=== PATIENT | female | born 1970 | race Caucasian/White ===

== ENCOUNTER → 2016-12-13 | Outpatient (CLI) | payer BC ==
--- NOTE | 2016-12-13 09:28 | REP ---
RIGHT UPPER QUADRANT/LIMITED ABDOMINAL ULTRASOUND: 12/13/2016 INDICATION: Diarrhea. Right upper quadrant pain. FINDINGS: A 1.8 mm echogenic focus is present within the dependent portion of the gallbladder and is non-shadowing and non-mobile compatible with gallbladder polyp. There was a positive sonographic Mckeon's sign. Gallbladder wall 1.6 mm in thickness within normal limits. Three hyperechoic foci are seen within the right lobe of liver likely hemangiomas, measuring 9.4 mm maximal dimension, 12.3 mm maximal dimension and 16 mm maximal dimension. The pancreas is mostly obscured by bowel gas. The visualized portions of the head and mid body are within normal range. Right kidney measures 11.0 x 4.4 x 3.9 cm. Hyperechoic intramedullary portion of the right kidney including renal sinus fat is identified as can be seen with medullary sponge kidney. There are findings findings suggesting renal cortical thinning as well. There is no hydronephrosis. IMPRESSION: 1. 1.8 mm hyperechoic non-mobile focus within the dependent portion of the gallbladder adhering to the wall most compatible with a small polyp. There is a positive sonographic Mckeon's sign. There is no gallbladder wall thickening or biliary dilatation (common bile duct 2.7 mm depth). 2. Three hyperechoic foci within the right lobe of liver, largest 16 mm diameter, most compatible with hemangiomas. 3. Pancreas moderately obscured by bowel gas. 4. Right kidney without hydronephrosis. Findings are suggestive of medullary sponge kidney.clinical follow up recommended. Unreviewed MTDD
== END ==
LOC: M RAD 08:06
PROVIDERS: ATTEND Nurse Practitioner Family
DX: R10.11 Right upper quadrant pain (principal); R19.7 Diarrhea, unspecified; K76.89 Other specified diseases of liver

== ENCOUNTER → 2017-01-04 | Outpatient (CLI) | payer BC ==
[~2017-01-04] MED LIST: GASTROGRAFIN SOLUTION 30ML (Q9963) As Ordered ONE; IMOD2TAB16 PO; ISOVUE-370 76% 100ML VIAL (Q9967) As Ordered ONE; LEXA1TAB PO; RANI15TA PO
--- NOTE | 2017-01-04 16:00 | REP ---
CT abdomen pelvis without and with IV contrast and with bowel contrast: Comparison is the abdominal ultrasound 2016. The visualized lung li are unremarkable. There is a 5.5 cm fixed hiatal hernia. The hepatic parenchyma is homogeneous on both phases of the study. The gallbladder is unremarkable. However, a gallbladder polyp was identified on the comparison ultrasound study. The pancreas and spleen are unremarkable. The adrenals, kidneys and abdominal aorta are unremarkable. The bowel and mesentery are unremarkable. Pelvis: The appendix is unremarkable. The uterus and adnexa are unremarkable. The bladder is incompletely distended and cannot be assessed. There is no adenopathy or ascites. The pelvic bowel loops are unremarkable. Impression: Essentially negative CT study of the abdomen and pelvis except for a fixed hiatal hernia. Signed by Silvio Alvarez MD 01/04/2017 03:51 P
== END ==
LOC: M RAD 13:02
PROVIDERS: ATTEND Surgery
DX: R10.11 Right upper quadrant pain (principal); R19.7 Diarrhea, unspecified; K44.9 Diaphragmatic hernia without obstruction or gangrene; K21.9 Gastro-esophageal reflux disease without esophagitis
CPT/HCPCS: 74178; Q9963; Q9967

== ENCOUNTER → 2017-01-10 | Outpatient (CLI) | payer BC ==
[~2017-01-10] VITALS: Ht 162.6 cm; Wt 98.9 kg
[~2017-01-10] MED LIST changes: -GASTROGRAFIN SOLUTION 30ML (Q9963) As Ordered ONE; -ISOVUE-370 76% 100ML VIAL (Q9967) As Ordered ONE; +LIDOCAINE 2% INJ 100 MG/5 ML SDV (FOR ANES.) As Ordered ONE; +NS 1,000 ML IV SCH; +PROPOFOL 200 MG/20 ML VIAL As Ordered ONE
--- NOTE | 2017-01-10 11:33 | ROOR ---
Patient Name: Joie Harley Procedure Date: 01/10/2017 11:13 AM Date of : 1970 Age: 46 Room: [facility] Gender: Female Note Status: Finalized Procedure: Upper GI endoscopy Indications: Generalized abdominal pain, Diarrhea Providers: Wenceslao Tyler Jr, MD Referring MD: Aydee Becker NP Requesting Provider: Medicines: Propofol per Anesthesia Complications: No immediate complications. Procedure: Pre-Anesthesia Assessment: - Prior to the procedure, a History and Physical was performed, and patient medications and allergies were reviewed. The patient is competent. The risks and benefits of the procedure and the sedation options and risks were discussed with the patient. All questions were answered and informed consent was obtained. Patient identification and proposed procedure were verified by the physician and the nurse in the pre-procedure area and in the procedure room. Mental Status Examination: alert and oriented. Airway Examination: normal oropharyngeal airway and neck mobility. Respiratory Examination: clear to auscultation. CV Examination: normal. ASA Grade Assessment: II - A patient with mild systemic disease. After reviewing the risks and benefits, the patient was deemed in satisfactory condition to undergo the procedure. The anesthesia plan was to use moderate sedation / analgesia (conscious sedation). Immediately prior to administration of medications, the patient was re-assessed for adequacy to receive sedatives. The heart rate, respiratory rate, oxygen saturations, blood pressure, adequacy of pulmonary ventilation, and response to care were monitored throughout the procedure. The physical status of the patient was re-assessed after the procedure. The Endoscope was introduced through the mouth, and advanced to the third part of duodenum. The upper GI endoscopy was accomplished without difficulty. The patient tolerated the procedure well. Findings: The upper third of the esophagus, middle third of the esophagus and lower third of the esophagus were normal. A medium-sized hiatal hernia was present. Patchy moderate inflammation characterized by congestion (edema), erythema, friability and granularity was found in the cardia, in the gastric fundus and in the gastric body. Biopsies were taken with a cold forceps for histology. The duodenal bulb and first portion of the duodenum were normal. The second portion of the duodenum was normal. Biopsies for histology were taken with a cold forceps for evaluation of celiac disease. Impression: - Normal upper third of esophagus, middle third of esophagus and lower third of esophagus. - Medium-sized hiatal hernia. - Gastritis. Biopsied. - Normal duodenal bulb and first portion of the duodenum. - Normal second portion of the duodenum. Biopsied. Recommendation: - Discharge patient to home (ambulatory). - Return to my office in 2 weeks. Wenceslao Tyler MD Wenceslao Tyler Jr, MD 01/10/2017 11:32:36 AM This report has been signed electronically. Number of Addenda: 0 Note Initiated On: 01/10/2017 11:13 AM Estimated Blood Loss: Estimated blood loss: none.
--- NOTE | 2017-01-10 11:49 | ROOR ---
Patient Name: Joie Harley Procedure Date: 01/10/2017 11:13 AM Date of : 1970 Age: 46 Room: [facility] Gender: Female Note Status: Finalized Procedure: Colonoscopy Indications: Generalized abdominal pain, Chronic diarrhea Providers: Wenceslao Tyler Jr, MD Referring MD: Aydee Becker NP Requesting Provider: Medicines: Propofol per Anesthesia Complications: No immediate complications. Procedure: Pre-Anesthesia Assessment: - Prior to the procedure, a History and Physical was performed, and patient medications and allergies were reviewed. The patient is competent. The risks and benefits of the procedure and the sedation options and risks were discussed with the patient. All questions were answered and informed consent was obtained. Patient identification and proposed procedure were verified by the physician and the nurse in the pre-procedure area and in the procedure room. Mental Status Examination: alert and oriented. Airway Examination: normal oropharyngeal airway and neck mobility. Respiratory Examination: clear to auscultation. CV Examination: normal. ASA Grade Assessment: II - A patient with mild systemic disease. After reviewing the risks and benefits, the patient was deemed in satisfactory condition to undergo the procedure. The anesthesia plan was to use moderate sedation / analgesia (conscious sedation). Immediately prior to administration of medications, the patient was re-assessed for adequacy to receive sedatives. The heart rate, respiratory rate, oxygen saturations, blood pressure, adequacy of pulmonary ventilation, and response to care were monitored throughout the procedure. The physical status of the patient was re-assessed after the procedure. The Colonoscope was introduced through the anus and advanced to the terminal ileum. The colonoscopy was performed without difficulty. The patient tolerated the procedure well. The quality of the bowel preparation was adequate and excellent. Findings: The perianal and digital rectal examinations were normal. Pertinent negatives include normal sphincter tone, no palpable rectal lesions and no anal lesion or abnormality was detected. The ileum appeared normal. Biopsies were taken with a cold forceps for histology. The entire examined colon, recto-sigmoid colon, sigmoid colon, descending colon, transverse colon, ascending colon, cecum, appendiceal orifice and ileocecal valve appeared normal. Biopsies for histology were taken with a cold forceps from the cecum, right colon, transverse colon, descending colon and sigmoid colon for evaluation of microscopic colitis. An area of mildly congested mucosa was found in the rectum. This was biopsied with a cold forceps for histology. Impression: - The terminal ileum is normal. Biopsied. - The entire examined colon, recto-sigmoid colon, sigmoid colon, descending colon, transverse colon, ascending colon, cecum, appendiceal orifice and ileocecal valve are normal. Biopsied. - Congested mucosa in the rectum. Biopsied. Recommendation: - Discharge patient to home (ambulatory). - Return to my office in 2 weeks. Wenceslao Tyler MD Wenceslao Tyler Jr, MD 01/10/2017 11:49:50 AM This report has been signed electronically. Number of Addenda: 0 Note Initiated On: 01/10/2017 11:13 AM Estimated Blood Loss: Estimated blood loss: none.
[2017-01-10 12:15] VITALS: BP 121/65
== END | disposition home or self-care (01) ==
LOC: M OPP 10:15
PROVIDERS: ATTEND Surgery
DX: R19.7 Diarrhea, unspecified (principal); R10.11 Right upper quadrant pain; R93.2 Abnormal findings on diagnostic imaging of liver and biliary tract; K62.89 Other specified diseases of anus and rectum; K44.9 Diaphragmatic hernia without obstruction or gangrene; K29.70 Gastritis, unspecified, without bleeding; F32.9 Major depressive disorder, single episode, unspecified; F41.9 Anxiety disorder, unspecified; Z80.3 Family history of malignant neoplasm of breast; R12 Heartburn; M19.90 Unspecified osteoarthritis, unspecified site; Z87.891 Personal history of nicotine dependence; Z79.899 Other long term (current) drug therapy

== ENCOUNTER → 2017-06-06 | Outpatient (REF) | payer BC ==
[~2017-06-06] MED LIST changes: -LIDOCAINE 2% INJ 100 MG/5 ML SDV (FOR ANES.) As Ordered ONE; -NS 1,000 ML IV SCH; -PROPOFOL 200 MG/20 ML VIAL As Ordered ONE
== END ==
LOC: M LAB REF 14:37
PROVIDERS: ATTEND Internal Medicine Gastroenterology
DX: K58.0 Irritable bowel syndrome with diarrhea (principal)

== ENCOUNTER → 2017-06-12 | Outpatient (REF) | payer BC | LOC: M LAB REF 14:43 | PROVIDERS: ATTEND Surgery | DX: L72.0 Epidermal cyst (principal) ==

== ENCOUNTER → 2017-06-25 | Outpatient (REF) | payer BC | LOC: M LAB REF 13:21 | PROVIDERS: ATTEND Surgery | DX: L72.0 Epidermal cyst (principal) ==

== ENCOUNTER → 2017-08-13 | Outpatient (REF) | payer BC | LOC: M SFHCWAGY 08:38 | PROVIDERS: ATTEND Nurse Practitioner Women's Health | DX: Z12.4 Encounter for screening for malignant neoplasm of cervix (principal) ==

== ENCOUNTER → 2017-08-13 | Outpatient (CLI) | payer BC ==
--- NOTE | 2017-08-23 13:00 | REPMRS ---
Patient History The patient states she had a clinical breast exam in 07/2017. Patient is postmenopausal. Family history of breast cancer in mother at age 80. Took hormonal contraceptives for 2 years. Digital Woman Screen Mammo: August 13, 2017 - Exam #: [id number] Bilateral CC and MLO view(s) were taken. Technologist: Rosette Jurado, Technologist Prior study comparison: March 07, 2016, digital bilateral screening mammo, performed at [facility]. FINDINGS: There are scattered fibroglandular densities. There has been no change in the appearance of the mammogram from the prior studies. There is a mild amount of residual fibroglandular tissue which is fairly symmetric. There is no interval development of dominant mass, architectural distortion, or clustered microcalcification suggestive of malignancy. ASSESSMENT: BI-RADS/ACR category 1 mammogram. Negative. Recommendation Routine screening mammogram in 1 year (for women over age 40). This mammogram was interpreted with the aid of an FDA-approved computer-aided dectection system. Electronically Signed By: Silvio Guerrero MD 08/23/17 [id number]
== END ==
LOC: M WHC 08:17
PROVIDERS: ATTEND Nurse Practitioner Women's Health
DX: Z12.31 Encounter for screening mammogram for malignant neoplasm of breast (principal)

== ENCOUNTER → 2018-05-30 | Outpatient (CLI) | payer OTHER, BC | LOC: M CLY 16:10 | DX: M25.561 Pain in right knee (principal) | CPT/HCPCS: 73564 ==

== ENCOUNTER → 2018-06-28 | Outpatient (CLI) | payer OTHER ==
[2018-06-28 18:47] LABS: C REACTIVE PROTEIN QUANTITATIV < 0.30 MG/DL (0.00-0.30)
[2018-06-28 19:06] LABS: ERYTHROCYTE SEDIMENTATION RATE 16 mm/hr (0-20)
[2018-07-02 00:07] LABS: Lyme Disease IgG/IgM Antibodie <0.91 ISR (0.00-0.90); Lyme Disease IgM Ab Quantitati <0.80 index (0.00-0.79)
== END ==
LOC: M WUC 09:19
DX: M25.561 Pain in right knee (principal)
CPT/HCPCS: 86140

== ENCOUNTER → 2018-10-02 | Outpatient (CLI) | payer OTHER ==
[2018-10-02 09:18] LABS: BASO % 0.3 % (0.0-1.0); EOS # 0.2 10^3/uL (0.0-0.50); HEMATOCRIT 40.5 % (36.0-47.0); HEMOGLOBIN 13.3 g/dl (12.0-15.5); IMMATURE GRANULOCYTE % 0.2 % (0-3.0); LYMPH % 32.5 % (24.0-44.0); MEAN CORPUSCULAR HEMOGLOBIN 30.4 pg (27.0-33.0); MEAN CORPUSCULAR HGB CONC 32.8 g/dl (32.0-36.5); MEAN CORPUSCULAR VOLUME 92.5 fl (80.0-96.0); MONO # 0.5 10^3/uL (0.0-0.8); MONO % 8.7 % (0.0-5.0); NEUTROPHILS # 3.4 10^3/uL (1.8-7.7); NEUTROPHILS % 55.3 % (36.0-66.0); PLATELET COUNT, AUTOMATED 166 10^3/uL (150-450); RED BLOOD COUNT 4.38 10^6/uL (4.00-5.40); WHITE BLOOD COUNT 6.1 10^3/uL (4.0-10.0)
[2018-10-02 09:51] LABS: ALBUMIN 3.7 GM/DL (3.2-5.2); ALBUMIN/GLOBULIN RATIO 1.28 (1.00-1.93); ALKALINE PHOSPHATASE 70 U/L (45-117); ALT/SGPT 15 U/L (12-78); ANION GAP 7 MEQ/L (8-16); AST/SGOT 12 U/L (7-37); BILIRUBIN,TOTAL 0.4 MG/DL (0.2-1.0); BLOOD UREA NITROGEN 21 MG/DL (7-18); CALCIUM LEVEL 9.2 MG/DL (8.5-10.1); CARBON DIOXIDE LEVEL 30 MEQ/L (21-32); CHLORIDE LEVEL 107 MEQ/L (98-107); CHOLESTEROL LEVEL 188 MG/DL (<200); CREATININE FOR GFR 0.77 MG/DL (0.55-1.30); FREE T4 1.22 NG/DL (0.76-1.46); GLOMERULAR FILTRATION RATE > 60.0 (>58); GLUCOSE, FASTING 80 MG/DL (70-100); HDL CHOLESTEROL 87 MG/DL (>40); LDL CHOLESTEROL 88 MG/DL (<100); NON-HDL-C 101 MG/DL; POTASSIUM SERUM 4.2 MEQ/L (3.5-5.1); SODIUM LEVEL 144 MEQ/L (136-145); TOTAL PROTEIN 6.6 GM/DL (6.4-8.2); TRIGLYCERIDES LEVEL 65 MG/DL (<150)
== END ==
LOC: M WUC 08:28
DX: F41.8 Other specified anxiety disorders (principal); L30.9 Dermatitis, unspecified; Z13.220 Encounter for screening for lipoid disorders
CPT/HCPCS: 84443

== ENCOUNTER → 2018-10-22 | Outpatient (CLI) | payer OTHER | LOC: M CLY 15:42 | DX: M17.12 Unilateral primary osteoarthritis, left knee (principal); M25.562 Pain in left knee | CPT/HCPCS: 73564 ==

== ENCOUNTER → 2020-04-29 | Outpatient (CLI) | payer OTHER ==
[2020-04-29 17:34] LABS: BASO % 0.4 % (0.0-1.0); EOS # 0.1 10^3/uL (0.0-0.5); EOS % 2.9 % (0.0-3.0); HEMATOCRIT 42.6 % (36.0-47.0); HEMOGLOBIN 13.6 g/dl (12.0-15.5); LYMPH # 1.8 10^3/uL (1.5-5.0); LYMPH % 36.5 % (24.0-44.0); MEAN CORPUSCULAR HEMOGLOBIN 29.8 pg (27.0-33.0); MEAN CORPUSCULAR HGB CONC 31.9 g/dl (32.0-36.5); MEAN CORPUSCULAR VOLUME 93.2 fl (80.0-96.0); MONO # 0.5 10^3/uL (0.0-0.8); NEUTROPHILS # 2.4 10^3/uL (1.5-8.5); PLATELET COUNT, AUTOMATED 191 10^3/uL (150-450); RED BLOOD COUNT 4.57 10^6/uL (4.00-5.40); WHITE BLOOD COUNT 4.8 10^3/uL (4.0-10.0)
[2020-04-29 17:51] LABS: ALBUMIN 3.7 GM/DL (3.2-5.2); ALT/SGPT 21 U/L (12-78); BILIRUBIN,TOTAL 0.5 MG/DL (0.2-1.0); BLOOD UREA NITROGEN 17 MG/DL (7-18); CALCIUM LEVEL 8.6 MG/DL (8.5-10.1); CARBON DIOXIDE LEVEL 31 MEQ/L (21-32); CHLORIDE LEVEL 109 MEQ/L (98-107); CHOLESTEROL LEVEL 192 MG/DL (<200); CHOLESTEROL RISK RATIO 2.526 (<5); CREATININE FOR GFR 0.77 MG/DL (0.55-1.30); FREE T4 1.08 NG/DL (0.76-1.46); GLOMERULAR FILTRATION RATE > 60.0 (>51); GLUCOSE, FASTING 81 MG/DL (70-100); HDL CHOLESTEROL 76 MG/DL (>40); LDL CHOLESTEROL 105 MG/DL (<100); NON-HDL-C 116 MG/DL; POTASSIUM SERUM 4.5 MEQ/L (3.5-5.1); SODIUM LEVEL 142 MEQ/L (136-145); TOTAL PROTEIN 6.7 GM/DL (6.4-8.2); TRIGLYCERIDES LEVEL 57 MG/DL (<150)
== END ==
LOC: M WUC 11:02
PROVIDERS: ATTEND Nurse Practitioner Family
DX: K21.9 Gastro-esophageal reflux disease without esophagitis (principal); F41.8 Other specified anxiety disorders; K52.838 Other microscopic colitis

== ENCOUNTER → 2020-08-15 | Outpatient (REF) | payer OTHER | LOC: M SFHCWAGY 13:03 | PROVIDERS: ATTEND Nurse Practitioner Women's Health | DX: Z12.4 Encounter for screening for malignant neoplasm of cervix (principal) | CPT/HCPCS: 87624; G0123 ==

== ENCOUNTER → 2020-08-15 | Outpatient (CLI) | payer OTHER ==
--- NOTE | 2020-08-15 12:11 | REPMRS ---
Patient History The patient states she had a clinical breast exam in 2019. Family history of breast cancer at age 80 in mother. Took hormonal contraceptives for 2 years. 3D TOMOSYNTHESIS WAS PERFORMED. The Jose Luis Kauffman lifetime risk for breast cancer is 16.0%. SHARMAINE Alexander. Digital Woman Screen Mammo: August 15, 2020 - Exam #: [id number] Bilateral CC and MLO view(s) were taken. Technologist: Taylor Conklin, Technologist Prior study comparison: August 13, 2017, digital woman screen mammo performed at [facility]. March 07, 2016, digital bilateral screening mammo, performed at [facility]. FINDINGS: There are scattered fibroglandular densities. There has been no change in the appearance of the mammogram from the prior studies. There is a mild amount of residual fibroglandular tissue which is fairly symmetric. There is no interval development of dominant mass, architectural distortion, or clustered microcalcification suggestive of malignancy. Assessment: BI-RADS/ACR category 1 mammogram. Negative Mammogram. Recommendation Routine screening mammogram in 1 year (for women over age 40). This mammogram was interpreted with the aid of an FDA-approved computer-aided dectection system. Electronically Signed By: Silvio Guerrero MD 08/15/20 1458
== END ==
LOC: M WHC 10:33
PROVIDERS: ATTEND Nurse Practitioner Women's Health
DX: Z12.31 Encounter for screening mammogram for malignant neoplasm of breast (principal); Z80.3 Family history of malignant neoplasm of breast

== ENCOUNTER 2021-01-06 08:19 | Inpatient (IN) | payer OTHER ==
[~2021-01-06] VITALS: Ht 162.6 cm; Wt 99.6 kg
--- OUTSIDE RECORDS SUMMARY | 2021-01-06 08:33 | CCD ---
Author Author [facility] Organization [facility] Address Unknown Phone Unavailable Care Team Providers Care Piped Pocket Machine Operator Name Role Phone Yelena MORGAN DPM Unavailable Unavailable Yelena MORGAN DPM Unavailable Unavailable Yelena MORGAN DPM Unavailable Unavailable Yelena MORGANM Unavailable Unavailable Yelena MORGAN DPM Unavailable Unavailable Yelena MORGAN DPM Unavailable Unavailable Yelena MORGAN DPM Unavailable Unavailable Yelena MORGAN DPM Unavailable Unavailable Yelena MORGAN DPM Unavailable Unavailable Yelena MORGAN DPM Unavailable Unavailable Yelena MORGANM Unavailable Unavailable Yelena MORGANM Unavailable Unavailable Yelena MORGAN DPM Unavailable Unavailable Yelena MORGAN DPM Unavailable Unavailable Yelena MORGAN DPM Unavailable Unavailable Yelena MORGAN DPM Unavailable Unavailable Yelena MORGAN DPM Unavailable Unavailable Yelena MORGANM Unavailable Unavailable MAJAK, R VARUN DPM Unavailable Unavailable MAJAK, R VARUN DPM Unavailable Unavailable MAJAK, R VARUN DPM Unavailable Unavailable MAJAK, R VARUN DPM Unavailable Unavailable MAJAK, R VARUN DPM Unavailable Unavailable MAJAK, R VARUN DPM Unavailable Unavailable MAJAK, R VARUN DPM Unavailable Unavailable MAJAK, R VARUN DPM Unavailable Unavailable MAJAK, R VARUN DPM Unavailable Unavailable MAJAK, R VARUN DPM Unavailable Unavailable MAJAK, R VARUN DPM Unavailable Unavailable MAJAK, R VARUN DPM Unavailable Unavailable Re-disclosure Warning The records that you are about to access may contain information from federally-assisted alcohol or drug abuse programs. If such information is present, then the following federally mandated warning applies: This information has been disclosed to you from records protected by federal confidentiality rules (42 CFR part 2). The federal rules prohibit you from making any further disclosure of this information unless further disclosure is expressly permitted by the written consent of the person to whom it pertains or as otherwise permitted by 42 CFR part 2. A general authorization for the release of medical or other information is NOT sufficient for this purpose. The Federal rules restrict any use of the information to criminally investigate or prosecute any alcohol or drug abuse patient.The records that you are about to access may contain highly sensitive health information, the redisclosure of which is protected by Article 27-F of the [facility] Public Health law. If you continue you may have access to information: Regarding HIV / AIDS; Provided by facilities licensed or operated by the [facility] Office of Mental Health; or Provided by the [facility] Office for People With Developmental Disabilities. If such information is present, then the following [facility] mandated warning applies: This information has been disclosed to you from confidential records which are protected by state law. State law prohibits you from making any further disclosure of this information without the specific written consent of the person to whom it pertains, or as otherwise permitted by law. Any unauthorized further disclosure in violation of state law may result in a fine or chcf sentence or both. A general authorization for the release of medical or other information is NOT sufficient authorization for further disc losure. Family History Family Member Name Family Member Gender Family Member Status Date o f Status Description Data Source(s) Unknown Male Problem MED[facility] ([facility]) Unknown Male Problem [facility] ([facility] Unknown Male Problem MED[facility] ([facility] ) Unknown Female Problem [facility] ([facility]) Unknown Unknown Problem [facility] ([facility]) Unknown Unknown Problem [facility] ([facility]) Unknown Unknown Problem [facility] ([facility]) Unknown Unknown Problem [facility] ([facility]) Encounters Encounter Providers Location Date Indications Data Source(s ) Unknown [address] [place] [id number] 10/14/2020 12:00:00 AM EST eCW1 (Critical access hospital) Outpatient Attender: VARUN MORGAN [facility] Office 06/26 04:00:00 PM EDT MED[facility] ([facility] Outpatient [address] [place] [id number] 05/03/2020 12:00:00 AM EDT eCW1 (Critical access hospital) [address] [address] 04/26/2020 12:00:00 AM EDT eCW1 (Critical access hospital) [address] [address] 03/10/2020 12:00:00 AM EDT eCW1 (Critical access hospital) Medications Medication Brand Name Start Date Product Form Dose Route Admi nistrative Instructions Pharmacy Instructions Status Indications Reaction Description Data Source(s) 0.1 % 10/15/2020 12:00:00 AM EST ointment 60 APPLY TO AFFECTED AREA(S) TWO TIMES A DAY APPLY TO AFFECTED AREA(S) TWO TIMES A DAY SOLD: 10/16/2020 [facility] 1.1 % 08/05/2020 12:00:00 AM EDT cream 51 USE TO BRUSH TEETH TWO TIMES A DAY USE TO BRUSH TEETH TWO TIMES A DAY SOLD: 08/07/2020 [facility] 40 mg 12/09/2019 12:00:00 AM EST capsule,delayed release (DR/EC) 180 TAKE ONE CAPSULE BY MOUTH TWICE A DAY TAKE ONE CAPSULE BY MOUTH TWICE A DAY SOLD: 12/11/2019 [facility] Insurance Providers Payer name Policy type / Coverage type Policy ID Covered democrat ID Covered democrat's relationship to machado Policy Machado Plan Information [facility] [id number] [facility] [id number] [facility] [id number] ANSI-Commercial [id number] ANSI-Commercial [id number] ANSI-Commercial [id number] ANSI-Commercial [id number] ANSI-Commercial [id number] ANSI-Commercial [id number] ANSI-Commercial [id number] ANSI-Commercial [id number] ANSI-Commercial [id number] ANSI-Commercial [id number] ANSI-Commercial [id number] ANSI-Commercial [id number] ANSI-Commercial [id number] ANSI-Commercial [id number] ANSI-Commercial [id number] UMR F [id number] SPOUSE [id number] [address] [facility] [id number] WI2 [id number] [place] [id number] WI2 [id number] UMR F [id number] SELF [id number] [place] / UMR F [id number] SELF [id number] [place] / UMR F [id number] SELF [id number] Umr (pr) Commercial [id number] Self [id number] [place] [id number] SP [id number] [place] Commercial [id number] [place] [id number] SP [id number] [place] [id number] SP [id number] [employer] Health Maintenance Organization (HMO) [id number] Family Dependent [id number] [place] [id number] [employer] [place] [employer] [id number] Sponsored De pendent [id number] [employer] [place] [employer] [id number] Self [id number] [place] P[place] 302/307 [id number] SP [id number] BCBS/Blue Card Commercial Family Dependent Problems, Conditions, and Diagnoses Code Display Name Description Problem Type Effective Dates Data Source(s) 265513852 Gastroesophageal reflux disease Gastroesophageal reflux disease Problem 12/08/2019 12:00:00 AM EST [facility] ([facility] Social History Code Duration Value Status Description Data Source(s ) Smoking 05/03/2020 12:00:00 AM EDT Current Smoker completed Curre nt Smoker eCW1 (Critical [facility]) Smoking 05/03/2020 12:00:00 AM EDT Current Smoker completed Curre nt Smoker eCW1 (Critical [facility]) Vital Signs ID Date Data Source UNK Name Value Range Interpretation Code Description Data Source(s) Body mass index (BMI) [Ratio] 39.1 kg/m2 39.1 k g/m2 [facility] ([facility] Heart rate 75 /min 75 /min [facility] ([facility] Diastolic blood pressure 74 mm[Hg] 74 mm[Hg] [facility] ([facility] Systolic blood pressure 118 mm[Hg] 118 mm[Hg] M EDENT ([facility] Body weight 228.00 [lb_av] 228.00 [lb_av] MEDEN T ([facility] Body height 64 [in_i] 64 [in_i] [facility] 5'4" Diastolic blood pressure 78 mm[Hg] 78 mm[Hg] eCW1 ([facility]) Systolic blood pressure 128 mm[Hg] 128 mm[Hg] e CW1 ([facility]) Body temperature 98.0 [degF] 98.0 [degF] eCW1 ( [facility]) Respiratory rate 18 /min 18 /min eCW1 ([facility]) Heart rate 66 /min 66 /min eCW1 ([facility]) Body mass index (BMI) [Ratio] 40.72 kg/m2 40.72 kg/m2 eCW1 ([facility]) Body height [in_i] eCW1 ([facility]) Body weight [lb_av] eCW1 ([facility]) Body weight 102.514 kg 102.514 kg [facility] ([facility]) Body mass index (BMI) [Ratio] 38.8 kg/m2 38.8 k g/m2 [facility] ([facility]) Heart rate 64 /min 64 /min [facility] ([facility]) Diastolic blood pressure 83 mm[Hg] 83 mm[Hg] [facility] ([facility]) Systolic blood pressure 123 mm[Hg] 123 mm[Hg] M EDENT ([facility]) Body weight 226.00 [lb_av] 226.00 [lb_av] MEDEN T ([facility]) Body height 64 [in_i] 64 [in_i] [facility] 5'4"
--- OUTSIDE RECORDS SUMMARY | 2021-01-06 08:33 | CCD ---
Author Author [facility] Organization [facility] Address Unknown Phone Unavailable Care Team Providers Care Service Rig Operator Name Role Phone Carly Callahan Unavailable PROBLEMS Type Condition ICD9-CM Code PJP70-QS Code Onset Dates Condition S tatus SNOMED Code Notes Problem Tobacco use disorder F17.200 Active 201533306 Problem Other microscopic colitis K52.838 Active 123196 003 Problem Gastroesophageal reflux disease, esophagitis pre sence not specified K21.9 Active 813129744 Problem Depression with anxiety F41.8 Active 90931710 6 ALLERGIES No Known Allergies ENCOUNTERS from 1969 to 2020-10-15 Encounter Location Date Provider Diagnosis [address] [address] Sep Carly Callahan Eczema, unspecified type L30.9 IMMUNIZATIONS Vaccine Route Administration Date Status Influenza (18 yrs & older) Flublok IM Intramuscular Oct 26, 2019 Administered Influenza (6mo & up) Fluzone IM Intramuscular Oct 22, 2018 Ad ministered Influenza (6mo & up) Fluzone IM Intramuscular Sep 06, 2017 Ad ministered Influenza (6mo & up) Fluzone IM Intramuscular Sep 18, 2016 Ad ministered SOCIAL HISTORY Tobacco Use: Social History Observation Description Date Details (start date - stop date) Current Smoker Sex Assigned At : Social History Observation Description Sex Assigned At Unknown Audit Question Answer Notes Total Score: 1 Interpretation: Alcohol Education Sexual Hx: Question Answer Notes Had sex in the last 12 months (vaginal, oral, or anal)? Yes LMP: 06/2016 Have you ever had an STD? No with Women only Use protection? No Drug and Alcohol Question Answer Notes Total Score: 0 Interpretation: No problems reported Alcohol Screening: Question Answer Notes Did you have a drink containing alcohol in the past year? Ye s Points 1 Interpretation Negative How often did you have six or more drinks on one occas ion in the past year? Never (0 points) How many drinks did you have on a typica l day when you were drinking in the past year? 1 or 2 (0 points) How often did you have a drink containing alcohol in t he past year? Monthly or less (1 point) BMI Care Goal Follow-Up Question Answer Notes Above Normal BMI Follow-Up Lifestyle education regarding t Tobacco Use: Question Answer Notes Are you a: current smoker Additional Findings: Tobacco User Light cigarette smoker ((1 -9 cigs/day) Smoking Cessation Information Given 05/03/2020 Patient counseled on the dangers of tobacco use and urged to quit: 05/03/2020 How many cigarettes a day do you smoke? 6-10 Are you interested in quitting? Not ready to quit REASON FOR REFERRAL No Information VITAL SIGNS No information MEDICATIONS Medication SIG (Take, Route, Frequency, Duration) Notes Start Da te End Date Status Sucralfate 1 GM 1 tablet at bedtime on an em pty stomach before meals Orally Twice a day for 30 day(s) Active Betamethasone Valerate 0.1 % 1 application to affected area Externally bid for 14 day(s) Active Escitalopram Oxalate 10 MG 1 tablet Orally Once a day Active Tylenol 325 MG 2 tablets as needed Orally every 6 hrs Active Gaviscon 80-14.2 MG 2 tablets after meals and at bedtime as needed Orally Four times a day Not-Taking Zantac 150 MG 1 tablet Orally Twice a day Active Lotrisone 1-0.05 % 1 application to affected ar ea Externally Twice a day for 14 day(s) Dec, Not-Taking Omeprazole 20 MG 1 capsule 30 minutes before morning meal Orally Once a day for 30 day(s) Active PROCEDURES No Information RESULTS No Results REASON FOR VISIT refill MEDICAL (GENERAL) HISTORY Type Description Date Medical History anxiety with mixed depression Medical History GERD/hiatal hernia Medical History microscopic colitis. Surgical History Meniscal tear repair left [place]: in [place]: c [facility], [facility]–1983 2014 Surgical History D & C 1996 Surgical History wisdom teeth extraction Surgical History cyst removal back Surgical History colonoscopy: microscopic colitis 06/2017 Hospitalization History D&C Hospitalization History Childbirth Goals Section No Information Health Concerns No Information MEDICAL EQUIPMENT No Information MENTAL STATUS No Information FUNCTIONAL STATUS No Information ASSESSMENTS Encounter Date Diagnosis Assessment Notes Treatment Notes Treatm ent Clinical Notes Sep, Eczema, unspecified type (ICD-10 - L30.9) PLAN OF TREATMENT Medication Medication Name Sig Start Date Stop Date Sucralfate 1 GM 1 tablet at bedtime on an em pty stomach before meals Orally Twice a day for 30 day(s) Zantac 150 MG 1 tablet Orally Twice a day Betamethasone Valerate 0.1 % 1 application to affected area Externally bid for 14 day(s) Escitalopram Oxalate 10 MG 1 tablet Orally Once a day Next Appt Details Provider Name:Aydee Becker, 610 08:30:00 AM, [address] [place], [address], Insurance Providers Payer Name Payer Address Payer Phone Insured Name Patient Relati onship to Insured Coverage Start Date Coverage End Date [facility] [id number] [facility] [address] MARTIN RANDHAWA self
[2021-01-06] MEDS ORDERED: BETA1OI TOP (08:39)
[2021-01-06] MEDS ORDERED: OMEP-221 PO (08:39)
[2021-01-06] MEDS ORDERED: PEPT262C2 PO (08:39)
[2021-01-06] MEDS ORDERED: ACET650T61 PO (08:40)
[2021-01-06] MEDS ORDERED: IBUP200T45 PO (08:40)
--- OUTSIDE RECORDS SUMMARY | 2021-01-06 09:38 | CCD ---
Author Author [facility] Organization [facility] Address Unknown Phone Unavailable Care Team Providers Care Manager Voice Name Role Phone Yelena MORGAN DPM Unavailable [...] by Article 27-F of the [facility] Public Health law. If you continue you may have access to information: Regarding HIV / AIDS; Provided by facilities licensed or operated by the [facility] Office of Mental Health; or Provided by the [facility] Office for People With Developmental Disabilities. If such information is present, then the following [facility] mandated warning applies: This information [...] law may result in a fine or mcc sentence or both. A general authorization for the release of medical or other information is NOT sufficient authorization for further disc losure. Family History Family Member Name Family Member Gender Family Member Status Date o f Status Description Data Source(s) Unknown Male Problem MEDENT ([facility]) Unknown Male Problem MEDENT ([facility] Unknown Male Problem MEDENT ([facility] ) Unknown Female Problem MEDENT ([facility]) Unknown Unknown Problem MEDENT ([facility] Unknown Unknown Problem MEDENT ([facility]) Unknown Unknown Problem MEDENT ([facility]) Unknown Unknown Problem MEDENT ([facility]) Encounters Encounter Providers Location Date Indications Data Source(s ) Unknown [address] [place] [address] 10/14/2020 12:00:00 AM EST eCW1 ([facility]) Outpatient Attender: VARUN MORGAN [facility] Office 06/26 04:00:00 PM EDT MEDENT ([facility] Outpatient [address] [place] [phone] 05/03/2020 12:00:00 AM EDT eCW1 ([facility]) [address] [address] 04/26/2020 12:00:00 AM EDT eCW1 ([facility]) [address] [address] 03/10/2020 12:00:00 AM EDT eCW1 ([facility]) Medications Medication Brand Name Start Date Product [...] MOUTH TWICE A DAY SOLD: 12/11/2019 [employer] Insurance Providers Payer name Policy type / Coverage type Policy ID Covered libertarian ID Covered libertarian's relationship to machado Policy Machado Plan Information R [facility] [id number] [facility] [id number] [facility] [id number] ANSI-Commercial [id number] ANSI-Commercial [id number] ANSI-Commercial [id number] ANSI-Commercial [id number] ANSI-Commercial [id number] ANSI-Commercial [id number] ANSI-Commercial [id number] ANSI-Commercial [id number] ANSI-Commercial [id number] ANSI-Commercial [id number] ANSI-Commercial [id number] ANSI-Commercial [id number] ANSI-Commercial [id number] ANSI-Commercial [id number] ANSI-Commercial [id number] UMR F [id number] SPOUSE [id number] 001 UMR [facility] [id number] WI2 [id number] [employer] [id number] WI2 [id number] UMR F [id number] SELF [id number] [employer] / UMR F [id number] SELF [id number] [employer] / UMR F [id number] SELF [id number] Umr (pr) Commercial [id number] Self [id number] [place] [id number] SP [id number] [employer] Commercial [id number] [place] [id number] SP [id number] [place] 800 [id number] SP [id number] [employer] BCBS Health Maintenance Organization (HMO) [id number] Family Dependent [id number] BS [place] [employer] [id number] BS Of [place] [employer] [id number] Sponsored De pendent [id number] BS Of [place] Commercial [id number] Self [id number] [place] PPO 302/307 [id number] SP [id number] BCBS/Blue Card Commercial Family Dependent Problems, Conditions, and Diagnoses Code Display Name Description Problem Type Effective Dates Data Source(s) [id number] Gastroesophageal reflux disease Gastroesophageal reflux disease Problem 12/08/2019 12:00:00 AM EST [facility] ([facility]) Social History Code Duration Value Status Description Data Source(s ) Smoking 05/03/2020 12:00:00 AM EDT Current Smoker completed Curre nt Smoker eCW1 ([facility]) Smoking 05/03/2020 12:00:00 AM EDT Current Smoker completed Curre nt Smoker eCW1 ([facility]) Vital Signs ID Date Data Source [...] blood pressure 78 mm[Hg] 78 mm[Hg] eCW1 ([facility]) Systolic blood pressure 128 mm[Hg] 128 mm[Hg] e CW1 ([facility]) Body temperature 98.0 [degF] 98.0 [degF] eCW1 ( [facility]) Respiratory rate 18 /min 18 /min eCW1 ([facility]) Heart rate 66 /min 66 /min eCW1 ([facility]) Body mass index (BMI) [Ratio] 40.72 kg/m2 40.72 kg/m2 eCW1 ([facility]) Body height [in_i] eCW1 ([facility]) Body weight [lb_av] eCW1 ([facility]) Body weight 102.514 kg 102.514 kg MEDENT ([facility]) Body mass index (BMI) [Ratio] 38.8 kg/m2 38.8 k g/m2 MEDENT ([facility]) Heart rate 64 /min 64 /min [facility] ([facility]) Diastolic blood pressure 83 mm[Hg] 83 mm[Hg] MEDENT ([facility]) Systolic blood pressure 123 mm[Hg] 123 mm[Hg] M EDENT ([facility]) Body weight 226.00 [lb_av] 226.00 [lb_av] MEDEN T ([facility]) Body height 64 [in_i] 64 [in_i] MEDENT ([facility]) 5'4"
--- NOTE | 2021-01-06 10:01 | REP ---
INDICATION: palpitations, transient vision loss.. COMPARISON: No comparison chest x-ray. TECHNIQUE: Two views.. FINDINGS: The lungs are well inflated and free of infiltrate. The pleural angles are sharp. The heart size is normal. Pulmonary vasculature is not increased. No significant bony abnormality is seen. There is a moderate size hiatal hernia behind the heart. Monitoring electrodes are seen. IMPRESSION: Hiatal hernia, otherwise no active disease.. <Electronically signed by Akil Gary > 01/06/21 0954
--- NOTE | 2021-01-06 10:20 | REP ---
INDICATION: Transient vision loss( Amaurosis fugax) rt eye. COMPARISON: None. TECHNIQUE: Helical scanning is acquired. 5 mm axial images were reformatted. Coronal MPR images were generated. FINDINGS: Bone window settings demonstrate an intact bony calvarium. There is no evidence of skull fracture or incidental bony calvarial lesion. The visualized paranasal sinuses appear clear. No intraorbital abnormality is seen. On soft tissue window setting images; the lateral, third, and fourth ventricles are normal in size and position. Guerrero-white differentiation pattern is normal above and below the tentorium. There are is no evidence of intracranial hemorrhage. No mass, edema, infarction, or midline shift is seen. No extra-axial fluid collection is appreciated. IMPRESSION: Negative noncontrast head CT. <Electronically signed by Akil Gary > 01/06/21 1016
[2021-01-06 10:28] LABS: HEMOGLOBIN 13.4 g/dl (12.0-15.5); MEAN CORPUSCULAR HEMOGLOBIN 30.6 pg (27.0-33.0); MEAN CORPUSCULAR HGB CONC 33.5 g/dl (32.0-36.5); MEAN CORPUSCULAR VOLUME 91.3 fl (80.0-96.0); PLATELET COUNT, AUTOMATED 167 10^3/uL (150-450); RED BLOOD COUNT 4.38 10^6/uL (4.00-5.40); WHITE BLOOD COUNT 4.7 10^3/uL (4.0-10.0)
[2021-01-06 11:09] LABS: BLOOD UREA NITROGEN 19 MG/DL (7-18); CARBON DIOXIDE LEVEL 29 MEQ/L (21-32); CHLORIDE LEVEL 107 MEQ/L (98-107); CK-MB VALUE MASS 1.2 NG/ML (<3.6); CPK CREATINE PHOSPHOKINASE 119 U/L (26-192); CREATININE FOR GFR 0.73 MG/DL (0.55-1.30); GLOMERULAR FILTRATION RATE > 60.0 (>51); GLUCOSE, FASTING 88 MG/DL (70-100); MB/CK RELATIVE INDEX 1.01 (< OR =4); POTASSIUM SERUM 4.3 MEQ/L (3.5-5.1); SODIUM LEVEL 143 MEQ/L (136-145); TROPONIN I < 0.02 NG/ML (< 0.10)
[2021-01-06] MEDS ORDERED: PEPT262S PO (12:04)
--- OUTSIDE RECORDS SUMMARY | 2021-01-06 12:19 | CCD ---
Author Author [facility] Organization [facility] Address Unknown Phone Unavailable Care Team Providers Care Vice President Talent Management Name Role Phone Yelena MORGAN DPM Unavailable [...] is protected by Article 27-F of the [facility] Public Health law. If you continue you may have access to information: Regarding HIV / AIDS; Provided by facilities licensed or operated by the [facility] Office of Mental Health; or Provided by the [facility] Office for People With Developmental Disabilities. If such information is present, then the following [facility] mandated warning applies: This information [...] law may result in a fine or intermediate sentence or both. A general authorization for the release of medical or other information is NOT sufficient authorization for further disc losure. Family History Family Member Name Family Member Gender Family Member Status Date o f Status Description Data Source(s) Unknown Male Problem MEDENT ([facility]) Unknown Male Problem MEDENT ([facility] Unknown Male Problem MEDENT ([facility] ) Unknown Female Problem MEDENT ([facility] Unknown Unknown Problem MED[facility] ([facility]) Unknown Unknown Problem MEDENT ([facility]) Unknown Unknown Problem MEDENT ([facility]) Unknown Unknown Problem MEDENT ([facility]) Encounters Encounter Providers Location Date Indications Data Source(s ) Unknown [address] [place] [address] 10/14/2020 12:00:00 AM EST eCW1 ([facility]) Outpatient Attender: VARUN MORGAN [facility] Office 06/26 04:00:00 PM EDT MEDENT ([facility] Outpatient [address] [place] [address] 05/03/2020 12:00:00 AM EDT eCW1 ([facility]) [address] [address] 04/26/2020 12:00:00 AM EDT eCW1 ([facility]) [address] [address] 03/10/2020 12:00:00 AM EDT eCW1 ([facility]) Medications Medication Brand Name Start Date Product [...] MOUTH TWICE A DAY SOLD: 12/11/2019 [facility] Insurance Providers Payer name Policy type / Coverage type Policy ID Covered constitution party ID Covered constitution party's relationship to machado Policy Machado Plan Information R [facility] [id number] WI2 [id number] [facility] [id number] RIF [id number] ANSI-Commercial [id number] ANSI-Commercial [id number] ANSI-Commercial [id number] ANSI-Commercial [id number] ANSI-Commercial [id number] ANSI-Commercial [id number] ANSI-Commercial [id number] ANSI-Commercial [id number] ANSI-Commercial [id number] ANSI-Commercial [id number] ANSI-Commercial [id number] ANSI-Commercial [id number] ANSI-Commercial [id number] ANSI-Commercial [id number] ANSI-Commercial [id number] UMR F [id number] SPOUSE [id number] 001 UMR [facility] [id number] WI2 [id number] [employer] [id number] WI2 [id number] UMR F [id number] SELF [id number] [employer] / UMR F [id number] SELF [id number] [employer] / UMR F [id number] SELF [id number] Umr (pr) Commercial [id number] Self [id number] [place] [id number] SP [id number] [employer] Commercial [id number] [place] [id number] SP [id number] [place] [id number] SP [id number] [employer] BCBS Health Maintenance Organization (HMO) [id number] Family Dependent [id number] BS [place] [employer] [id number] BS Of [place] Commercial [id number] Sponsored De pendent [id number] BS Of [place] Commercial [id number] Self [id number] [place] PPO 302/307 [id number] SP [id number] BCBS/Blue Card Commercial Family Dependent Problems, Conditions, and Diagnoses Code Display Name Description Problem Type Effective Dates Data Source(s) [id number] Gastroesophageal reflux disease Gastroesophageal reflux disease Problem 12/08/2019 12:00:00 AM EST MED[facility] ([facility]) Social History Code Duration Value Status Description Data Source(s ) Smoking 05/03/2020 12:00:00 AM EDT Current Smoker completed Curre nt Smoker eCW1 ([facility]) Smoking 05/03/2020 12:00:00 AM EDT Current Smoker completed Curre nt Smoker eCW1 ([facility]) Vital Signs ID Date Data Source UNK [...] blood pressure 78 mm[Hg] 78 mm[Hg] eCW1 ([facility]) Systolic blood pressure 128 mm[Hg] 128 mm[Hg] e CW1 ([facility]) Body temperature 98.0 [degF] 98.0 [degF] eCW1 ( [facility]) Respiratory rate 18 /min 18 /min eCW1 ([facility]) Heart rate 66 /min 66 /min eCW1 ([facility] Body mass index (BMI) [Ratio] 40.72 kg/m2 40.72 kg/m2 eCW1 ([facility]) Body height [in_i] eCW1 ([facility]) Body weight [lb_av] eCW1 ([facility]) Body weight 102.514 kg 102.514 kg MEDENT ([facility]) Body mass index (BMI) [Ratio] 38.8 kg/m2 38.8 k g/m2 MEDENT ([facility]) Heart rate 64 /min 64 /min [facility] ([facility]) Diastolic blood pressure 83 mm[Hg] 83 mm[Hg] MEDENT ([facility]) Systolic blood pressure 123 mm[Hg] 123 mm[Hg] M EDENT ([facility]) Body weight 226.00 [lb_av] 226.00 [lb_av] MEDEN T ([facility]) Body height 64 [in_i] 64 [in_i] MEDENT ([facility]) 5'4"
[2021-01-06] MEDS: ASPIRIN 81 MG ENTERIC TAB PO SCH (13:43)
--- NOTE | 2021-01-06 14:05 | HPEPDOC ---
[facility] Medical History & Physical Date of Admission Jan 06, 2021 Date of Service: Jan 06, 2021 History and Physical CHIEF COMPLAINT: Transient vision loss HISTORY OF PRESENT ILLNESS: This is a 50-year-old female history of microscopic colitis who comes to the hospital after experiencing an episode of transient vision loss in her right eye 2 days ago. She states that she was at home when she noticed sudden loss of visi on in her right eye which lasted for seconds and then fully resolved within 1 minute. She endorses that over the past 4 months she experienced similar episodes 3 times before but has not seeked medical attention. She denies any associated symptoms during the episode other than a mild headache on Saturday following the episode. She hasn't tried anything to alleviate her symptoms. She last saw an naval aircrewman avionics 6 months ago and was told her I exam was normal. In the emergency department CT scan of the head was negative for intracranial bleed PAST MEDICAL/SURGICAL HISTORY: Microscopic colitis Arthritis GERD D&C Left knee meniscus repair SOCIAL HISTORY: Endorses drinking alcohol but only socially with friends occasionally Endorses smoking 7 cigarettes daily Denies illicit drug use FAMILY HISTORY: Reviewed and none contributory to this admission ALLERGIES: Please see below. REVIEW OF SYSTEMS: 10 point review of systems complete all negative otherwise stated in HPI HOME MEDICATIONS: Please see below. PHYSICAL EXAMINATION: Constitutional: Awake and alert, in no apparent distress ENT: Sclera are clear. Mucosa is moist. Respiratory: Lungs CTA bilaterally. No respiratory distress. No use of accessory muscles. Cardiovascular: RRR S1 and S2 are normal, no murmur Gastrointestinal: Abdomen is soft, non distended, non tender, BS present. Musculoskeletal: No lower extremity edema Skin: Warm, dry mental status: The patient is awake, alert, oriented to name, location, and sven e. Cranial nerves: Pupils are equal, round, and reactive to light. Extraocular muscles intact. Visual li full bilaterally. Smile is symmetrical. Tongue is midline. Intact sensation on both sides of face. Motor: At least 4+/5 in both upper and lower extremities without any drifting. Sensory: Intact to sensation bilaterally. Reflexes: Symmetrical, non-hyperreflexic. Not pathological. Coordination: Btlfcx-fi-altu grossly intact. LABORATORY DATA: See below. IMAGING: See chart MICROBIOLOGY: Please see below. ASSESSMENT/PLAN 50-year-old female presented to the hospital due to transient vision loss which fully resolved being admitted to [facility] out stroke. TIA is suspected. # Transient vision loss: Etiology unclear at this time the patient will be admitted for stroke workup. CT head negative for intracranial hemorrhage. I discussed the case with neurologist Dr. Knutson who is engine monitor today and he agrees with the plan. ASA, Statin. Fu MRI, MRA brain. Fu US carotids, echo. Patient passed bedside swallow eval and can have a regular diet. PT/OT. Admit to PCU on tele and neuro checks. Ophthalmology referral at discharge. # Smoker: Nicotine patch. I counseled patient on quitting smoking. # Depression: Continue Lexapro # GERD: Continue Protonix # DVT prophylaxis: Lovenox A Yousef Hospitalist Vital Signs Vital Signs Date Time Temp Pulse Resp B/P (MAP) Pulse Ox O2 Delivery O2 Flow Rate FiO2 01/06/21 11:45 64 18 134/75 (94) 99 Room Air 01/06/21 08:22 97.3 Laboratory Data Labs 24H Laboratory Tests 2 01/06/21 10:09: Nucleated Red Blood Cells % (auto) 0.0, Anion Gap 7L, Glomerular Filtration Rate > 60.0, Calcium Level 9.0, Total Creatine Kinase 119, Creatine Kinase MB 1.2, Creatine Kinase MB Relative Index 1.01, Troponin I < 0.02 01/06/21 12:30: Coronavirus (COVID-19)(PCR) NEGATIVE CBC/BMP Laboratory Tests 01/06/21 10:09 Home Medications Scheduled Aspirin (Aspirin EC) 81 Mg Tablet.dr, 81 MG PO DAILY Atorvastatin Calcium (Atorvastatin Calcium) 20 Mg Tablet, 20 MG PO QHS Escitalopram Oxalate (Lexapro) 10 Mg Tab, 10 MG PO QHS Nicotine (Nicotine Patch) 21 Mg Patch.td24, 1 PATCH TD QHS Omeprazole (Omeprazole) 40 Mg Capsule.dr, 40 MG PO DAILY Scheduled PRN Acetaminophen (Tylenol Arthritis) 650 Mg Tablet.er, 1,300 MG PO Q8H PRN for PAIN Betamethasone Minnie (Betamethasone Valerate) 45 Gm Oint...g., 1 APLCT TOP BID PRN for ECZEMA APPLY TO HANDS Bismuth Subsalicylate (Pepto-Bismol) 262 Mg/15 Ml Oral.susp, 30 ML PO Q6H PRN for INDIGESTION Ibuprofen (Ibu-200) 200 Mg Tablet, 200 MG PO Q6H PRN for PAIN Allergies Coded Allergies: No Known Allergies (Unverified , 01/06/21) A-FIB/CHADSVASC A-FIB History Current/History of A-Fib/PAF?: No ANGELO HURT MD Jan 06, 2021 14:05
--- NOTE | 2021-01-06 14:57 | REP ---
INDICATION: Stroke workup COMPARISON: None. TECHNIQUE: Real-time ultrasound evaluation and duplex Doppler interrogation of the extracranial carotid vasculature is performed. FINDINGS: Antegrade flow is observed in both vertebral arteries. Right carotid: The right common carotid artery shows diffuse intimal thickening but is otherwise unremarkable. There minimal soft plaquing in the right carotid bulb and proximal ICA on two-dimensional scanning. Color flow and spectral Doppler interrogation are unremarkable on the right. Velocity chart right carotid: Right CCA PSV: 96 cm/S Right ICA PSV: 85 cm/S Right ICA EDV: 23 cm/S Right ECA PSV: 75 cm/S Right ICA/CCA ratio: 0.89 Left carotid: The left common carotid artery shows diffuse intimal thickening but is otherwise unremarkable. There is minimal soft plaquing in the left carotid bulb and proximal ICA on two-dimensional scanning. Color flow and spectral Doppler interrogation are unremarkable on the left. Velocity chart left carotid: Left CCA PSV: 110 cm/S Left ICA PSV: 88 cm/S Left ICA EDV: 23 cm/S Left ECA PSV: 78 cm/S Left ICA/CCA ratio: 0.80 IMPRESSION: Less than 50% category narrowing in the right internal carotid artery by Doppler velocity criteria. Less than 50% category narrowing in the left ICA by Doppler velocity criteria. <Electronically signed by Akil Gary > 01/06/21 [id number]
[2021-01-06 15:50] VITALS: BP 118/65
--- NOTE | 2021-01-06 15:57 | REPVR ---
PROCEDURE INFORMATION: Exam: MR Angiogram Head Without Contrast, Arteries Exam date and time: 01/06/2021 11:58 AM Age: 50 years old Clinical indication: Weakness; Patient HX: RT eye vision loss; Additional info: Suspected stroke TECHNIQUE: Imaging protocol: MR angiogram head without contrast. Exam focused on the arteries. COMPARISON: CT Head without contrast 01/06/2021 10:08 AM MRI-Brain without Contrast 01/06/2021 2:55:13 PM FINDINGS: ANTERIOR CIRCULATION: Right internal carotid artery: 2-3 mm inferolaterally directed outpouching from the cavernous right ICA consistent with a small aneurysm. Right middle cerebral artery: No occlusion or significant stenosis. No aneurysm. Right anterior cerebral artery: No occlusion or significant stenosis. No aneurysm. Left internal carotid artery: Intracranial segment is patent with no significant stenosis. No aneurysm. Left middle cerebral artery: No occlusion or significant stenosis. No aneurysm. Left anterior cerebral artery: No occlusion or significant stenosis. No aneurysm. 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 Patent. Left vertebral artery: The left vertebral artery is dominant. Patent. Basilar artery: No occlusion or significant stenosis. No aneurysm. Right posterior cerebral artery: No occlusion or significant stenosis. No aneurysm. Left posterior cerebral artery: No occlusion or significant stenosis. No aneurysm. IMPRESSION: 1. No proximal arterial occlusion. 2. 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 Electronically signed by: Rosette Mejía On 01/06/2021 15:57:39 PM
--- NOTE | 2021-01-06 16:01 | REPVR ---
PROCEDURE INFORMATION: Exam: MR Head Without Contrast Exam date and time: 01/06/2021 11:58 AM Age: 50 years old Clinical indication: Visual disturbance; Patient HX: RT eye vision loss; Additional info: Suspected stroke TECHNIQUE: Imaging protocol: MR of the head without contrast. COMPARISON: CT Head without contrast 01/06/2021 10:08 AM FINDINGS: Brain: No acute infarct identified on the diffusion-weighted imaging. No parenchymal hemorrhage. No evidence of brain parenchymal edema or intracranial mass effect. No significant white matter disease for the patient's age. Cerebral ventricles: Normal. No ventriculomegaly. Bones/joints: Unremarkable. Paranasal sinuses: Trace ethmoid mucosal thickening. Mastoid air cells: Trace right mastoid fluid. Orbital cavity: The orbital contents are unremarkable. Soft tissues: Unremarkable. IMPRESSION: No evidence of acute infarct. Electronically signed by: Rosette Mejía On 01/06/2021 16:01:27 PM
[2021-01-06 20:00] VITALS: BP 120/59
[2021-01-06] MEDS ORDERED: ESCITALOPRAM OXALATE 10 MG TAB (LEXAPRO) PO SCH (21:00)
[2021-01-06] MEDS ORDERED: ATORVASTATIN 20 MG TAB PO SCH (21:00)
[2021-01-06] MEDS ORDERED: ENOXAPARIN 40MG/0.4ML SYRINGE (J1650 PER 10MG) SC SCH (21:00)
[2021-01-06] MEDS ORDERED: NICOTINE 21MG/24HR 1 EA TRANSDERMAL TD SCH (21:00)
--- NOTE | 2021-01-06 21:27 | ECGEPIP ---
[facility] - ED Test Date: 2021-01-06 Pat Name: MARTIN RANDHAWA Department: Room: - Gender: Female Database Development Project Manager: VC : [id number] Requested By: Justice Bo Order Number: [id number] Reading MD: Nidia Crandall Measurements Intervals [place] Rate: 61 P: 43 [place]: 168 QRS: -2 QRSD: 86 T: -6 QT: 406 QTc: 409 Interpretive Statements SINUS RHYTHM LOW QRS VOLTAGE IN PRECORDIAL LEADS NSTTW abnormalities No prior Electronically Signed on 01-06-2021 21:26:57 EST by Nidia Crandall
[2021-01-07] VITALS: BP 101/60
[2021-01-07 04:00] VITALS: BP 112/78
[2021-01-07] MEDS ORDERED: OMEPRAZOLE 20 MG CAP PO ONE (06:50)
[2021-01-07 08:00] VITALS: BP 112/56
[2021-01-07] MEDS ORDERED: OMEPRAZOLE 20 MG CAP PO SCH (09:00)
[2021-01-07] MEDS: ASPIRIN 81 MG ENTERIC TAB PO SCH (09:22)
[2021-01-07] MEDS ORDERED: ASPI81TAEC PO (10:55)
[2021-01-07] MEDS ORDERED: NICO21PAT TD (10:55)
[2021-01-07] MEDS ORDERED: ATOR1TAB21 PO (10:55)
--- NOTE | 2021-01-07 11:13 | DS.PDOC ---
Discharge Summary General Date of Admission Jan 06, 2021 at 11:58 Date of Discharge 01/07/21 Discharge Summary PROCEDURES PERFORMED DURING STAY: [None]. ADMITTING DIAGNOSES: 1. Transient vision loss DISCHARGE DIAGNOSES: 1. Transient vision loss unclear etiology could have been a TIA COMPLICATIONS/CHIEF COMPLAINT: Transient vision loss HISTORY OF PRESENT ILLNESS: From admitting H&P:This is a 50-year-old female hi story of microscopic colitis who comes to the hospital after experiencing an episode of transient vision loss in her right eye 2 days ago. She states that she was at home when she noticed sudden loss of vision in her right eye which lasted for seconds and then fully resolved within 1 minute. She endorses that over the past 4 months she experienced similar episodes 3 times before but has not seeked medical attention. She denies any associated symptoms during the episode other than a mild headache on Saturday following the episode. She hasn't tried anything to alleviate her symptoms. She last saw an ceramic designer 6 months ago and was told her I exam was normal. In the emergency department CT scan of the head was negative for intracranial bleed HOSPITAL COURSE: 50-year-old female presented to the hospital due to transient vision loss which fully resolved being admitted to rule out stroke. This could have been a TIA. # Transient vision loss: Etiology unclear patient was admitted for stroke workup, TIA is suspected. CT head negative for intracranial hemorrhage. I discussed the case with neurologist Dr. Knutson who is national account director today and he agrees with the plan. ASA, Statin. MRI, MRA brain both negative however MRA brain did incidentally reveal a 2-3 mm right cavernous aneurysm .US carotids negative. I recommended obtaining an echo but the patient preferred to go home today and obtain the echo with her primary care physician outpatient basis. Given the MRI was negative for stroke I accepted this solution and trust the patient to follow-up with her primary care physician for that. Patient passed bedside swallow. On telemetry monitoring patient did have a single episode of sinus tachycardia with palpitations which self resolved I reviewed telemetry and it did not appear like A. fib I recommended that should these episodes recur that her primary care physician may have to refer to cardiology perhaps for a loop monitor. Ophthalmology and neurology referral at discharge. # Smoker: Nicotine patch. I counseled patient on quitting smoking as this is a risk factor for stroke and TIA. DISCHARGE MEDICATIONS: Please see below. ALLERGIES: Please see below. PHYSICAL EXAMINATION ON DISCHARGE: Today upon discharge patient was feeling well she did not have any more episodes of transient vision loss. She had no complaints. There was one episode on telemetry monitoring overnight when she have it a few seconds of sinus tachycardia which self resolved and patient did feel some palpitations at that time. Currently asymptomatic without any chest pain or palpitations. Regular heart rate sinus rhythm. VITAL SIGNS: Please see below. Constitutional: Awake and alert, in no apparent distress ENT: Sclera are clear. Mucosa is moist. Respiratory: Lungs CTA bilaterally. No respiratory distress. No use of accessory muscles. Cardiovascular: RRR S1 and S2 are normal, no murmur Gastrointestinal: Abdomen is soft, non distended, non tender, BS present. Musculoskeletal: No lower extremity edema Skin: Warm, dry mental status: The patient is awake, alert, oriented to name, location, and date. Cranial nerves: Pupils are equal, round, and reactive to light. Extraocular muscles intact. Visual li full bilaterally. Smile is symmetrical. Tongue is midline. Intact sensation on both sides of face. Motor: At least 4+/5 in both upper and lower extremities without any drifting. LABORATORY DATA: Please see below. IMAGING: MR Angiogram Head Without Contrast, Arteries IMPRESSION: 1. No proximal arterial occlusion. 2. 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 MR Head Without Contrast: No evidence of acute infarct. Duplex carotids:Less than 50% category narrowing in the right internal carotid artery by Doppler velocity criteria.Less than 50% category narrowing in the left ICA by Doppler velocity criteria. PROGNOSIS: Good ACTIVITY: [As tolerated]. DIET: Regular diet DISPOSITION: Home DISCHARGE INSTRUCTIONS: Please follow up with your primary care physician within 1 week from discharge. If you do not have one, please follow up with us to schedule an appointment. Please keep all of your follow up appointments. Please call central to book your appointments with hospital specialists. Please take all your medications as prescribed. Please call/come to Clinic or go to the Emergency Department if - Temp >101, intractable Nausea/Vomiting, Diarrhea, Mouth sores, Headaches, Altered mental status, Seizures, sudden onset of swelling, bleeding, shortness of breath or chest pain. ITEMS TO FOLLOWUP ON ON OUTPATIENT: Follow-up with primary care physician for hospital discharge follow-up and obtain echocardiogram Follow-up with ceramic designer Follow-up with neurologist DISCHARGE CONDITION: [Stable]. TIME SPENT ON DISCHARGE: 40 minutes. Vital Signs/I&Os Vital Signs Date Time Temp Pulse Resp B/P (MAP) Pulse Ox O2 Delivery O2 Flow Rate FiO2 01/07/21 08:00 98.3 72 18 112/56 (74) 96 Room Air I&O- Last 24 Hours up to 6 AM 01/07/21 06:00 Intake Total 600 ml Output Total 1750 ml Balance -1150 ml Laboratory Data Labs 24H Laboratory Tests 2 01/06/21 12:30: Coronavirus (COVID-19)(PCR) NEGATIVE Discharge Medications Scheduled Aspirin (Aspirin EC) 81 Mg Tablet.dr, 81 MG PO DAILY Atorvastatin Calcium (Atorvastatin Calcium) 20 Mg Tablet, 20 MG PO QHS Escitalopram Oxalate (Lexapro) 10 Mg Tab, 10 MG PO QHS, (Reported) Nicotine (Nicotine Patch) 21 Mg Patch.td24, 1 PATCH TD QHS Omeprazole (Omeprazole) 40 Mg Capsule.dr, 40 MG PO DAILY, (Reported) Scheduled PRN Acetaminophen (Tylenol Arthritis) 650 Mg Tablet.er, 1,300 MG PO Q8H PRN for PAIN, (Reported) Betamethasone Minnie (Betamethasone Valerate) 45 Gm Oint...g., 1 APLCT TOP BID PRN for ECZEMA, (Reported) APPLY TO HANDS Bismuth Subsalicylate (Pepto-Bismol) 262 Mg/15 Ml Oral.susp, 30 ML PO Q6H PRN for INDIGESTION, (Reported) Ibuprofen (Ibu-200) 200 Mg Tablet, 200 MG PO Q6H PRN for PAIN, (Reported) Allergies Coded Allergies: No Known Allergies (Unverified , 01/06/21) ANGELO HURT MD Jan 07, 2021 11:13
[2021-01-07 11:53] VITALS: BP 115/58
[2021-01-08] MEDS ORDERED: OMEPRAZOLE 20 MG CAP PO SCH (06:30)
--- NOTE | 2021-01-09 11:57 | ECHO ---
DATE OF PROCEDURE: 01/07/2021 Age: 50 Gender: Female REFERRING PROVIDER: Mike Lopez MD. PATIENT LOCATION: Room 3230. REASON FOR STUDY: TIA. 2D MEASUREMENTS: IVS 1.4 cm LV 4,9 cm LVPW 1.0 cm LA 4.2 cm Aorta 3.1 cm IVC 1.9 cm DOPPLER MEASUREMENT Peak velocity across the aortic valve 1.2 m/s Peak velocity across the LVOT 0.82 m/s Mitral E 0.83 Mitral A 0.68 with a ratio of 1.2 Maximum tricuspid valve velocity 2.6 m/s 2D COMMENTS: 1. Normal left ventricular size, wall thickness, and normal global left ventricular systolic function. The estimated left ventricular systolic ejection fraction is 60 to 65%. 2. Mildly enlarged left atrium. Normal right atrium and right ventricle. 3. The atrial septum appeared to be normal without evidence of defect or shunt. 4. Normal aortic root. 5. Trace to small pericardial effusion seen. No evidence of cardiac tamponade. 6. The aortic valve, mitral valve, tricuspid valve, and pulmonary valve appeared to be normal. The proximal pulmonary artery branches also appear to be normal. 7. The inferior vena cava was normal in size, central venous pressure is most likely normal. Doppler detects trace mitral regurgitation, mild tricuspid regurgitation, and trace pulmonic regurgitation. The calculated pulmonary artery systolic pressure varies between 30 to 40 mmHg. Assessment of the left ventricular diastolic function appeared to be normal. IMPRESSION: 1. Normal global left ventricular systolic and diastolic function. 2. Trace mitral regurgitation with a mildly enlarged left atrium. 3. Mild tricuspid regurgitation with probably mild pulmonary hypertension. 4. Trace to small pericardial effusion, no evidence of cardiac tamponade. MTDD
== END 2021-01-07 13:05 | disposition home or self-care (01) | DRG 125 ==
LOC: M ED 08:19 → M ED INP 11:58 → M PCU 15:41
PROVIDERS: ADMIT Family Medicine; ATTEND Family Medicine
DX: H54.61 Unqualified visual loss, right eye, normal vision left eye (principal); I67.1 Cerebral aneurysm, nonruptured; F17.210 Nicotine dependence, cigarettes, uncomplicated; Z79.899 Other long term (current) drug therapy; Z79.82 Long term (current) use of aspirin; K21.9 Gastro-esophageal reflux disease without esophagitis; M19.90 Unspecified osteoarthritis, unspecified site; F32.9 Major depressive disorder, single episode, unspecified

== ENCOUNTER → 2021-08-11 | Outpatient (CLI) | payer OTHER ==
[~2021-08-11] MED LIST changes: +ACET650T61 PO; +ASPI-569 PO; +ATOR1TAB21 PO; +BETA1OI TOP; +IBUP200T46 PO; +NICO21PAT TD; +OMEP40CA5 PO; +PEPT262C2 PO; +PEPT262S PO
== END ==
LOC: M SLEEP 20:00
PROVIDERS: ATTEND Nurse Practitioner Family
DX: R06.83 Snoring (principal)

== ENCOUNTER → 2021-09-26 | Outpatient (REF) | payer OTHER ==
[~2021-09-26] MED LIST changes: +OMEP-221 PO; -OMEP40CA5 PO
== END ==
LOC: M SFHCCLAY 15:45
PROVIDERS: ATTEND Nurse Practitioner Family
DX: L72.3 Sebaceous cyst (principal)

== ENCOUNTER → 2021-10-02 | Outpatient (REF) | payer OTHER ==
[2021-10-02 11:51] LABS: BASO % 0.6 % (0.0-1.0); EOS # 0.3 10^3/uL (0.0-0.5); EOS % 5.6 % (0.0-3.0); HEMATOCRIT 40.3 % (36.0-47.0); HEMOGLOBIN 13.2 g/dl (12.0-15.5); LYMPH # 1.9 10^3/uL (1.5-5.0); LYMPH % 38.2 % (24.0-44.0); MEAN CORPUSCULAR HEMOGLOBIN 30.5 pg (27.0-33.0); MEAN CORPUSCULAR HGB CONC 32.8 g/dl (32.0-36.5); MEAN CORPUSCULAR VOLUME 93.1 fl (80.0-96.0); MONO # 0.4 10^3/uL (0.0-0.8); MONO % 9.1 % (2.0-8.0); NEUTROPHILS # 2.2 10^3/uL (1.5-8.5); NEUTROPHILS % 46.3 % (36.0-66.0); PLATELET COUNT, AUTOMATED 182 10^3/uL (150-450); RED BLOOD COUNT 4.33 10^6/uL (4.00-5.40); WHITE BLOOD COUNT 4.8 10^3/uL (4.0-10.0)
[2021-10-02 12:37] LABS: ALBUMIN 3.4 GM/DL (3.2-5.2); ALT/SGPT 18 U/L (12-78); BILIRUBIN,TOTAL 0.4 MG/DL (0.2-1.0); BLOOD UREA NITROGEN 18 MG/DL (7-18); CALCIUM LEVEL 9.2 MG/DL (8.5-10.1); CARBON DIOXIDE LEVEL 32 MEQ/L (21-32); CHLORIDE LEVEL 110 MEQ/L (98-107); CHOLESTEROL LEVEL 155 MG/DL (<200); CHOLESTEROL RISK RATIO 1.987 (<5); CREATININE FOR GFR 0.74 MG/DL (0.55-1.30); FREE T4 1.11 NG/DL (0.76-1.46); GLOMERULAR FILTRATION RATE > 60.0 (>51); GLUCOSE, FASTING 87 MG/DL (70-100); HDL CHOLESTEROL 78 MG/DL (>40); LDL CHOLESTEROL 67 MG/DL (<100); NON-HDL-C 77 MG/DL; POTASSIUM SERUM 4.3 MEQ/L (3.5-5.1); SODIUM LEVEL 144 MEQ/L (136-145); TOTAL PROTEIN 6.6 GM/DL (6.4-8.2); TRIGLYCERIDES LEVEL 49 MG/DL (<150)
== END ==
LOC: M SFHCCLAY 08:43
PROVIDERS: ATTEND Nurse Practitioner Family
DX: K21.9 Gastro-esophageal reflux disease without esophagitis (principal); F17.200 Nicotine dependence, unspecified, uncomplicated; G47.33 Obstructive sleep apnea (adult) (pediatric); L30.9 Dermatitis, unspecified; F41.8 Other specified anxiety disorders; Z13.220 Encounter for screening for lipoid disorders; L72.3 Sebaceous cyst

== ENCOUNTER → 2021-10-08 | Outpatient (CLI) | payer OTHER ==
--- NOTE | 2021-10-09 17:32 | SLEEPCENT ---
DATE: 10/08/2021 ORDERED BY: UMBERTO Masters Nocturnal polysomnography was performed for the titration of pressure therapy in this patient with obstructive sleep apnea, apnea-hypopnea index 11.3. For testing, the patient was fit with a ResMed N20 AirFit nasal mask of medium size, 4 cm of water pressure were applied to the circuit and the lights were extinguished. Six hours and 55 minutes of data were reviewed. There were 334.5 minutes of sleep identified. Sleep latency was mildly prolonged at 34 minutes. REM latency was mildly prolonged at 153 minutes. Sleep architecture improved late in the study and there was one REM cycle. Overall sleep efficiency was 81.8%. The electrocardiogram showed a sinus rhythm with an average heart rate of 60 beats per minute. EEG showed normal waveforms for wake and sleep. Respiratory events were fully palliated with a CPAP at a pressure of +6 with some limb activity noted. Two trains of 30 events were counted. Limb movement arousal index borderline at 6.1. IMPRESSIONS: Obstructive sleep apnea syndrome (G47.33). RECOMMENDATION: Nightly use of pressure therapy 6 cm of water. cc: UMBERTO Fallon
== END ==
LOC: M SLEEP 20:00
PROVIDERS: ATTEND Nurse Practitioner Family
DX: G47.33 Obstructive sleep apnea (adult) (pediatric) (principal)

== ENCOUNTER → 2022-02-22 | Outpatient (CLI) | payer OTHER ==
[~2022-02-22] MED LIST changes: -OMEP-221 PO; +OMEP40CA5 PO
== END ==
LOC: M WHC 14:08
PROVIDERS: ATTEND Nurse Practitioner Family
DX: Z12.31 Encounter for screening mammogram for malignant neoplasm of breast (principal); Z80.3 Family history of malignant neoplasm of breast

== ENCOUNTER → 2023-01-08 | Outpatient (REF) | payer OTHER ==
[2023-01-08 17:36] LABS: BASO # 0.1 10^3/uL (0.0-0.2); BASO % 0.9 % (0.0-1.0); EOS # 0.2 10^3/uL (0.0-0.5); EOS % 2.6 % (0.0-3.0); HEMATOCRIT 39.5 % (36.0-47.0); HEMOGLOBIN 13.1 g/dl (12.0-15.5); LYMPH # 1.9 10^3/uL (1.5-5.0); LYMPH % 33.7 % (24.0-44.0); MEAN CORPUSCULAR HGB CONC 33.2 g/dl (32.0-36.5); MEAN CORPUSCULAR VOLUME 93.4 fl (80.0-96.0); MONO # 0.6 10^3/uL (0.0-0.8); MONO % 10.5 % (2.0-8.0); NEUTROPHILS % 52.1 % (36.0-66.0); PLATELET COUNT, AUTOMATED 184 10^3/uL (150-450); RED BLOOD COUNT 4.23 10^6/uL (4.00-5.40); WHITE BLOOD COUNT 5.7 10^3/uL (4.0-10.0)
[2023-01-08 18:08] LABS: ALBUMIN 3.7 G/DL (3.2-5.2); ALKALINE PHOSPHATASE 90 U/L (46-116); ALT/SGPT 22 U/L (7.0-40); AST/SGOT 11 U/L (<34); BILIRUBIN,TOTAL 0.5 MG/DL (0.3-1.2); BLOOD UREA NITROGEN 16 MG/DL (9-23); CALCIUM LEVEL 9.2 MG/DL (8.5-10.1); CARBON DIOXIDE LEVEL 34 MMOL/L (20-31); CHLORIDE LEVEL 106 MMOL/L (98-107); CHOLESTEROL LEVEL 147 MG/DL (<200); CHOLESTEROL RISK RATIO 1.82 (<5); CREATININE FOR GFR 0.79 MG/DL (0.55-1.30); GLOMERULAR FILTRATION RATE > 60.0 (>51); GLUCOSE, FASTING 83 MG/DL (60-100); HDL CHOLESTEROL 80.4 MG/DL (>40); LDL CHOLESTEROL 56.8 MG/DL (<100); NON-HDL-C 67 MG/DL; POTASSIUM SERUM 4.7 MMOL/L (3.5-5.1); SODIUM LEVEL 142 MMOL/L (136-145); TOTAL PROTEIN 6.6 G/DL (5.7-8.2); TRIGLYCERIDES LEVEL 49 MG/DL (<150)
[2023-01-08 18:11] LABS: FREE T4 1.09 NG/DL (0.89-1.76)
== END ==
LOC: M SFHCCLAY 09:44
PROVIDERS: ATTEND Nurse Practitioner Family
DX: K21.9 Gastro-esophageal reflux disease without esophagitis (principal); F17.200 Nicotine dependence, unspecified, uncomplicated; G47.33 Obstructive sleep apnea (adult) (pediatric); F41.8 Other specified anxiety disorders; L30.9 Dermatitis, unspecified; Z13.220 Encounter for screening for lipoid disorders; L72.3 Sebaceous cyst

== ENCOUNTER → 2023-01-31 | Outpatient (CLI) | payer OTHER | LOC: M PLAIMG 14:04 | PROVIDERS: ATTEND Nurse Practitioner Family | DX: G43.909 Migraine, unspecified, not intractable, without status migrainosus (principal); I67.1 Cerebral aneurysm, nonruptured ==

== ENCOUNTER 2023-05-21 06:07 | Emergency (ER) | payer OTHER ==
[~2023-05-21] VITALS: Ht 162.6 cm; Wt 103.2 kg
[2023-05-21 07:26] LABS: BASO % 0.3 % (0.0-1.0); EOS % 0.3 % (0.0-3.0); HEMATOCRIT 37.8 % (36.0-47.0); HEMOGLOBIN 12.7 g/dl (12.0-15.5); LYMPH # 0.6 10^3/uL (1.5-5.0); LYMPH % 5.4 % (24.0-44.0); MEAN CORPUSCULAR HEMOGLOBIN 30.6 pg (27.0-33.0); MEAN CORPUSCULAR HGB CONC 33.6 g/dl (32.0-36.5); MEAN CORPUSCULAR VOLUME 91.1 fl (80.0-96.0); MONO # 0.6 10^3/uL (0.0-0.8); NEUTROPHILS # 9.9 10^3/uL (1.5-8.5); NEUTROPHILS % 88.6 % (36.0-66.0); PLATELET COUNT, AUTOMATED 155 10^3/uL (150-450); RED BLOOD COUNT 4.15 10^6/uL (4.00-5.40); WHITE BLOOD COUNT 11.1 10^3/uL (4.0-10.0)
[2023-05-21] MEDS ORDERED: NS 1,000 ML IV ONE (07:35)
[2023-05-21] MEDS ORDERED: IBUPROFEN 600MG TAB PO ONE (07:45)
[2023-05-21 07:51] LABS: ALBUMIN 3.5 G/DL (3.2-5.2); ALKALINE PHOSPHATASE 82 U/L (46-116); ALT/SGPT 26 U/L (7.0-40); AST/SGOT 18 U/L (<34); BILIRUBIN,DIRECT 0.2 MG/DL (<0.4); BILIRUBIN,TOTAL 0.6 MG/DL (0.3-1.2); BLOOD UREA NITROGEN 17 MG/DL (9-23); C REACTIVE PROTEIN QUANTITATIV < 0.40 MG/DL (<1.0); CALCIUM LEVEL 8.6 MG/DL (8.5-10.1); CARBON DIOXIDE LEVEL 28 MMOL/L (20-31); CHLORIDE LEVEL 108 MMOL/L (98-107); CREATININE FOR GFR 0.69 MG/DL (0.55-1.30); GLOMERULAR FILTRATION RATE > 60.0 (>51); GLUCOSE, FASTING 104 MG/DL (60-100); POTASSIUM SERUM 3.7 MMOL/L (3.5-5.1); SODIUM LEVEL 143 MMOL/L (136-145); TOTAL PROTEIN 6.1 G/DL (5.7-8.2)
[2023-05-21 07:52] LABS: AMYLASE 120 U/L (30-118)
[2023-05-21 09:43] LABS: APPEARANCE, URINE CLEAR (CLEAR); BACTERIA, URINE AUTO NEGATIVE (NEGATIVE); BILIRUBIN, URINE AUTO NEGATIVE (NEGATIVE); BLOOD, URINE BLOOD NEGATIVE (NEGATIVE); COLOR, URINE YELLOW (YELLOW); GLUCOSE, URINE (UA) AUTO NEGATIVE (NEGATIVE); KETONE, URINE AUTO NEGATIVE (NEGATIVE); LEUKOCYTE ESTERASE, URINE AUTO NEGATIVE (NEGATIVE); MUCUS, URINE SMALL (NEGATIVE); NITRITE, URINE AUTO NEGATIVE (NEGATIVE); PROTEIN, URINE AUTO NEGATIVE (NEGATIVE); RBC, URINE AUTO 1 /HPF (0-3); SPECIFIC GRAVITY URINE AUTO 1.019 (1.002-1.035); SQUAMOUS EPITHELIAL CELL UR AU 1 /HPF (0-6); UROBILINOGEN, URINE AUTO 0.2 mg/dL (0.0-2.0); WBC, URINE AUTO 2 /HPF (0-3)
[2023-05-21 10:24] VITALS: BP 113/58; TEMP 99; O2SAT 96
[2023-05-21] MEDS ORDERED: CEFD300C PO (10:27)
[2023-05-21] MEDS ORDERED: DOXY100C82 PO (10:27)
[2023-05-21] MEDS ORDERED: ONDA4TAB6 PO (10:27)
== END 2023-05-21 11:00 | disposition home or self-care (01) ==
LOC: M ED 06:07
DX: J18.9 Pneumonia, unspecified organism (principal); M54.50 Low back pain, unspecified; F41.9 Anxiety disorder, unspecified; K21.9 Gastro-esophageal reflux disease without esophagitis; Z86.73 Personal history of transient ischemic attack (TIA), and cerebral infarction without residual deficits; Z87.442 Personal history of urinary calculi; Z79.52 Long term (current) use of systemic steroids; Z79.02 Long term (current) use of antithrombotics/antiplatelets; Z79.899 Other long term (current) drug therapy

== ENCOUNTER → 2023-08-30 | Outpatient (CLI) | payer OTHER ==
[~2023-08-30] MED LIST changes: +CEFD300C PO; +DOXY100C82 PO; +ONDA4TAB6 PO
== END ==
LOC: M WHC 09:17
PROVIDERS: ATTEND Nurse Practitioner Family
DX: Z12.31 Encounter for screening mammogram for malignant neoplasm of breast (principal)

== ENCOUNTER → 2023-12-12 | Outpatient (CLI) | payer OTHER ==
[2023-12-12 14:52] LABS: BASO % 0.5 % (0.0-1.0); EOS # 0.1 10^3/uL (0.0-0.5); HEMATOCRIT 41.8 % (36.0-47.0); HEMOGLOBIN 13.6 g/dl (12.0-15.5); LYMPH # 2.1 10^3/uL (1.5-5.0); LYMPH % 26.2 % (24.0-44.0); MEAN CORPUSCULAR HEMOGLOBIN 30.3 pg (27.0-33.0); MEAN CORPUSCULAR HGB CONC 32.5 g/dl (32.0-36.5); MEAN CORPUSCULAR VOLUME 93.1 fl (80.0-96.0); MONO # 0.5 10^3/uL (0.0-0.8); MONO % 6.6 % (2.0-8.0); NEUTROPHILS # 5.4 10^3/uL (1.5-8.5); NEUTROPHILS % 65.6 % (36.0-66.0); PLATELET COUNT, AUTOMATED 216 10^3/uL (150-450); RED BLOOD COUNT 4.49 10^6/uL (4.00-5.40); WHITE BLOOD COUNT 8.2 10^3/uL (4.0-10.0)
[2023-12-12 15:06] LABS: INR 1.05; PROTHROMBIN TIME 13.4 SECONDS (12.5-14.5)
[2023-12-12 15:07] LABS: PARTIAL THROMBOPLASTIN TIME 29.5 SECONDS (24.8-34.2)
[2023-12-12 15:16] LABS: ALBUMIN 3.8 G/DL (3.2-5.2); ALKALINE PHOSPHATASE 106 U/L (46-116); ALT/SGPT 25 U/L (7.0-40); AST/SGOT 19 U/L (<34); BILIRUBIN,TOTAL 0.5 MG/DL (0.3-1.2); BLOOD UREA NITROGEN 18 MG/DL (9-23); CALCIUM LEVEL 9.3 MG/DL (8.5-10.1); CARBON DIOXIDE LEVEL 33 MMOL/L (20-31); CHLORIDE LEVEL 106 MMOL/L (98-107); CREATININE FOR GFR 0.85 MG/DL (0.55-1.30); GLOMERULAR FILTRATION RATE > 60.0 (>51); GLUCOSE, FASTING 99 MG/DL (60-100); SODIUM LEVEL 141 MMOL/L (136-145); TOTAL PROTEIN 6.9 G/DL (5.7-8.2)
== END ==
LOC: M RAD 13:38
PROVIDERS: ATTEND Specialist
DX: Z01.818 Encounter for other preprocedural examination (principal)

== ENCOUNTER → 2024-04-06 | Outpatient (REF) | payer OTHER ==
[~2024-04-06] MED LIST changes: +CETI10CH PO; +DUPI300I SC; +[UNRECOGNIZED DRUG - OTHER] PO
== END ==
LOC: M SFHCWAGY 16:58
PROVIDERS: ATTEND Nurse Practitioner Family
DX: N95.0 Postmenopausal bleeding (principal)

== ENCOUNTER 2024-04-08 09:10 | Day surgery (SDC) | payer OTHER ==
[~2024-04-08] VITALS: Ht 162.6 cm; Wt 106.2 kg
[2024-04-08] MEDS: NS 1,000 ML IV ONE (09:43)
[2024-04-08 11:29] VITALS: TEMP 98.1
[2024-04-08 11:53] VITALS: BP 126/67; O2SAT 99
[2024-04-08] MEDS ORDERED: propofoL 200 MG/20 ML VIAL As Ordered ONE (12:42)
== END 2024-04-08 12:08 | disposition home or self-care (01) ==
LOC: M OPP 09:10
PROVIDERS: ATTEND Internal Medicine Gastroenterology
DX: Z12.11 Encounter for screening for malignant neoplasm of colon (principal); Z12.12 Encounter for screening for malignant neoplasm of rectum; K64.0 First degree hemorrhoids; K44.9 Diaphragmatic hernia without obstruction or gangrene; R12 Heartburn; E78.00 Pure hypercholesterolemia, unspecified; G47.30 Sleep apnea, unspecified; Z79.899 Other long term (current) drug therapy; Z79.82 Long term (current) use of aspirin; Z87.891 Personal history of nicotine dependence; K58.9 Irritable bowel syndrome, unspecified; Z86.73 Personal history of transient ischemic attack (TIA), and cerebral infarction without residual deficits

== ENCOUNTER → 2024-07-07 | Outpatient (REF) | payer OTHER ==
[~2024-07-07] MED LIST changes: +ONDA-282 PO; -ONDA4TAB6 PO
[2024-07-09 14:43] LABS: HPV APTIMA Not Detected (Not Detected)
== END ==
LOC: M SFHCWAGY 15:10
PROVIDERS: ATTEND Nurse Practitioner Family
DX: Z12.4 Encounter for screening for malignant neoplasm of cervix (principal)
CPT/HCPCS: 87624; G0123

== ENCOUNTER → 2024-10-06 | Outpatient (REF) | payer OTHER ==
[2024-10-06 11:31] LABS: BASO % 0.5 % (0.0-1.0); EOS # 0.1 10^3/uL (0.0-0.5); EOS % 2.4 % (0.0-3.0); HEMATOCRIT 40.8 % (36.0-47.0); LYMPH # 1.8 10^3/uL (1.5-5.0); LYMPH % 30.1 % (24.0-44.0); MEAN CORPUSCULAR HEMOGLOBIN 29.5 pg (27.0-33.0); MEAN CORPUSCULAR HGB CONC 31.9 g/dl (32.0-36.5); MEAN CORPUSCULAR VOLUME 92.5 fl (80.0-96.0); MONO # 0.5 10^3/uL (0.0-0.8); MONO % 9.3 % (2.0-8.0); NEUTROPHILS # 3.3 10^3/uL (1.5-8.5); NEUTROPHILS % 57.5 % (36.0-66.0); PLATELET COUNT, AUTOMATED 187 10^3/uL (150-450); RED BLOOD COUNT 4.41 10^6/uL (4.00-5.40); WHITE BLOOD COUNT 5.8 10^3/uL (4.0-10.0)
[2024-10-06 11:38] LABS: ALBUMIN 3.7 G/DL (3.2-5.2); ALKALINE PHOSPHATASE 102 U/L (35-104); ALT/SGPT 24 U/L (7.0-40); AST/SGOT 16 U/L (<34); BILIRUBIN,TOTAL 0.4 MG/DL (0.3-1.2); BLOOD UREA NITROGEN 18 MG/DL (9-23); CALCIUM LEVEL 9.6 MG/DL (8.5-10.1); CARBON DIOXIDE LEVEL 30 MMOL/L (20-31); CHLORIDE LEVEL 107 MMOL/L (98-107); CHOLESTEROL LEVEL 167 MG/DL (<200); CHOLESTEROL RISK RATIO 2.09 (<5); CREATININE FOR GFR 0.78 MG/DL (0.55-1.30); FREE T4 1.16 NG/DL (0.89-1.76); GLOMERULAR FILTRATION RATE > 60.0 (>51); GLUCOSE, FASTING 94 MG/DL (60-100); HDL CHOLESTEROL 79.7 MG/DL (>40); LDL CHOLESTEROL 76.7 MG/DL (<100); NON-HDL-C 87.3 MG/DL; POTASSIUM SERUM 4.4 MMOL/L (3.5-5.1); SODIUM LEVEL 141 MMOL/L (136-145); TOTAL PROTEIN 7.2 G/DL (5.7-8.2); TRIGLYCERIDES LEVEL 53 MG/DL (<150)
[2024-10-06 11:46] LABS: HEMOGLOBIN A1c 5.3 % (4.0-6.0)
== END ==
LOC: M SFHCCLAY 07:51
PROVIDERS: ATTEND Nurse Practitioner Family
DX: G43.B0 Ophthalmoplegic migraine, not intractable (principal); G43.909 Migraine, unspecified, not intractable, without status migrainosus; K21.9 Gastro-esophageal reflux disease without esophagitis; F17.200 Nicotine dependence, unspecified, uncomplicated; G47.33 Obstructive sleep apnea (adult) (pediatric); F41.8 Other specified anxiety disorders; L30.9 Dermatitis, unspecified; K52.838 Other microscopic colitis; M79.672 Pain in left foot; I83.899 Varicose veins of unspecified lower extremity with other complications

== ENCOUNTER → 2025-02-24 | Outpatient (REF) | payer OTHER ==
[~2025-02-24] MED LIST changes: +DOXY-442 PO; -DOXY100C82 PO
[2025-02-24 11:55] LABS: BASO % 0.8 % (0.0-1.0); EOS # 0.1 10^3/uL (0.0-0.5); EOS % 2.7 % (0.0-3.0); HEMATOCRIT 38.3 % (36.0-47.0); HEMOGLOBIN 12.5 g/dl (12.0-15.5); LYMPH # 1.8 10^3/uL (1.5-5.0); MEAN CORPUSCULAR HEMOGLOBIN 29.3 pg (27.0-33.0); MEAN CORPUSCULAR HGB CONC 32.6 g/dl (32.0-36.5); MEAN CORPUSCULAR VOLUME 89.7 fl (80.0-96.0); MONO # 0.6 10^3/uL (0.0-0.8); MONO % 10.5 % (2.0-8.0); NEUTROPHILS # 2.7 10^3/uL (1.5-8.5); NEUTROPHILS % 50.8 % (36.0-66.0); PLATELET COUNT, AUTOMATED 187 10^3/uL (150-450); RED BLOOD COUNT 4.27 10^6/uL (4.00-5.40); WHITE BLOOD COUNT 5.3 10^3/uL (4.0-10.0)
[2025-02-24 12:01] LABS: APPEARANCE, URINE CLEAR (CLEAR); BACTERIA, URINE AUTO 1+ (NEGATIVE); BILIRUBIN, URINE AUTO NEGATIVE (NEGATIVE); BLOOD, URINE BLOOD NEGATIVE (NEGATIVE); COLOR, URINE YELLOW (YELLOW); GLUCOSE, URINE (UA) AUTO NEGATIVE (NEGATIVE); KETONE, URINE AUTO NEGATIVE (NEGATIVE); LEUKOCYTE ESTERASE, URINE AUTO NEGATIVE (NEGATIVE); NITRITE, URINE AUTO NEGATIVE (NEGATIVE); PROTEIN, URINE AUTO NEGATIVE (NEGATIVE); RBC, URINE AUTO 0 /HPF (0-3); SPECIFIC GRAVITY URINE AUTO 1.009 (1.002-1.035); SQUAMOUS EPITHELIAL CELL UR AU 2 /HPF (0-6); UROBILINOGEN, URINE AUTO 0.2 mg/dL (0.0-2.0); WBC, URINE AUTO 0 /HPF (0-3)
[2025-02-24 12:14] LABS: INR 0.91; PARTIAL THROMBOPLASTIN TIME 30.7 SECONDS (24.8-34.2); PROTHROMBIN TIME 12.6 SECONDS (12.5-14.5)
[2025-02-24 12:32] LABS: ALBUMIN 3.4 G/DL (3.2-5.2); ALKALINE PHOSPHATASE 103 U/L (35-104); ALT/SGPT 43 U/L (7.0-40); AST/SGOT 26 U/L (<34); BILIRUBIN,TOTAL 0.6 MG/DL (0.3-1.2); BLOOD UREA NITROGEN 20 MG/DL (9-23); CALCIUM LEVEL 9.1 MG/DL (8.5-10.1); CARBON DIOXIDE LEVEL 30 MMOL/L (20-31); CHLORIDE LEVEL 106 MMOL/L (98-107); CREATININE FOR GFR 0.76 MG/DL (0.55-1.30); GLOMERULAR FILTRATION RATE > 60.0 (>51); GLUCOSE, FASTING 82 MG/DL (60-100); POTASSIUM SERUM 4.5 MMOL/L (3.5-5.1); SODIUM LEVEL 143 MMOL/L (136-145); TOTAL PROTEIN 6.7 G/DL (5.7-8.2)
== END ==
LOC: M SFHCCLAY 09:16
PROVIDERS: ATTEND Nurse Practitioner Family
DX: Z01.818 Encounter for other preprocedural examination (principal); M17.12 Unilateral primary osteoarthritis, left knee

== ENCOUNTER → 2025-02-25 | Outpatient (CLI) | payer OTHER | LOC: M CLY 13:26 | PROVIDERS: ATTEND Nurse Practitioner Family | DX: Z01.818 Encounter for other preprocedural examination (principal); M17.12 Unilateral primary osteoarthritis, left knee; I51.7 Cardiomegaly; K44.9 Diaphragmatic hernia without obstruction or gangrene; J98.11 Atelectasis ==

== ENCOUNTER → 2025-03-01 | Outpatient (REF) | payer OTHER | LOC: M SFHCCLAY 09:06 | PROVIDERS: ATTEND Nurse Practitioner Family | DX: Z01.818 Encounter for other preprocedural examination (principal); M17.12 Unilateral primary osteoarthritis, left knee ==

== ENCOUNTER → 2025-11-02 | Outpatient (CLI) | payer OTHER | LOC: M WHC 10:17 | PROVIDERS: ATTEND Nurse Practitioner Family | DX: Z12.31 Encounter for screening mammogram for malignant neoplasm of breast (principal); R92.323 Mammographic fibroglandular density, bilateral breasts ==